=== PATIENT | male | born 1995 | race Caucasian/White ===

== ENCOUNTER 2019-02-15 22:59 | Emergency (ER) | payer MEDICAID, OTHER ==
[~2019-02-15] VITALS: Ht 172.7 cm; Wt 70.3 kg
[2019-02-15 23:00] VITALS: BP_SYST 110
--- NOTE | 2019-02-15 23:15 | NUR ---
Patient to ER bed 06 to gown for evaluation. Side rails up.
--- NOTE | 2019-02-15 23:20 | NUR ---
patient bib girlfriend and friend after drinking 7-8 ETOH drinks. Per girl frien, patient has never done this before. patient is asleep with ETOH smell on breath. patient is unable to walk or talk. patients girlfriend stated he vomited x4 times. no other complaint or injury at this time.
--- NOTE | 2019-02-15 23:20 | NUR ---
ER at bedside examining patient.
[2019-02-15] MEDS ORDERED: NACL 0.9% 1,000 ML IV ONE (23:30)
--- NOTE | 2019-02-16 00:50 | NUR ---
patient resting in bed. vss.
--- NOTE | 2019-02-16 01:00 | NUR ---
patients eyes are open and patient is walking in full sentances
[2019-02-16 01:30] VITALS: BP_SYST 115
--- NOTE | 2019-02-16 01:30 | NUR ---
Patient given written and verbal discharge instructions and verbalizes understanding. ER MD discussed with patient the results and treatment provided. Patient in stable condition. ID arm band removed. IV catheter removed intact and dressing applied, no active bleeding. Rx of zero given. Patient educated on pain management and to follow up with PMD. Pain Scale 0/10. Opportunity for questions provided and answered. Medication side effect fact sheet provided.
== END 2019-02-16 01:30 | disposition home or self-care (01) ==
LOC: SED 22:59
DX: F10.129 Alcohol abuse with intoxication, unspecified (principal)
CPT/HCPCS: 99283; J7030